=== PATIENT | female | born 1940 | race Caucasian/White ===

== ENCOUNTER 2018-06-26 13:16 | Emergency (ER) | payer MEDICARE ==
--- NOTE | 2018-06-26 14:33 | UC ---
Lower Extremity/Ankle HPI - HPI Summary HPI Summary: right foot pain for 2 days no recall of injury - History of Current Complaint Chief Complaint: UCLowerExtremity Stated Complaint: FOOT PAIN Time Seen by Provider: 06/26/18 14:26 Hx Obtained From: Patient ?: No Onset/Duration: Sudden Onset, Lasting Days - 2, Other - similar pain a few years ago--unknown dx treated with pain med and it went away in about 1 week Severity Initially: Moderate Severity Currently: Severe Pain Intensity: 10 Pain Scale Used: 0-10 Numeric Aggravating Factor(s): Standing, Ambulation Alleviating Factor(s): Nothing Able to Bear Weight: No - Allergies/Home Medications Allergies/Adverse Reactions: Allergies Allergy/AdvReac Type Severity Reaction Status Date / Time morphine Allergy Intermediate Rash Verified 06/26/18 13:56 pioglitazone [From Actos] Allergy Unknown Verified 06/26/18 13:56 Reaction Details PMH/Surg Hx/FS Hx/Imm Hx Previously Healthy: No Endocrine History: Diabetes, Dyslipidemia Cardiovascular History: Hypertension - Surgical History Surgical History: Yes Surgery Procedure, Year, and Place: LEFT HIP REPLACEMENT 2009. BILATERAL KNEE REPLACEMENTS 2003, 2004. 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 - Social History Occupation: Retired Lives: With Family Alcohol Use: None Substance Use Type: None Smoking Status (MU): Never Smoked Tobacco Review of Systems Constitutional: Negative Skin: Negative Eyes: Negative ENT: Negative Respiratory: Negative Cardiovascular: Negative Gastrointestinal: Negative Genitourinary: Negative Motor: Negative Neurovascular: Negative Musculoskeletal: Arthralgia - right great toe mtj pain Neurological: Negative Psychological: Negative Is Patient Immunocompromised?: No All Other Systems Reviewed And Are Negative: Yes Physical Exam Triage Information Reviewed: Yes Appearance: Well-Appearing, No Pain Distress, Well-Nourished Vital Signs: Initial Vital Signs Temp 97.3 F 06/26/18 13:56 Pulse 63 06/26/18 13:56 Resp 20 06/26/18 13:56 BP 124/66 06/26/18 13:56 Pulse Ox 100 06/26/18 13:56 Vital Signs Reviewed: Yes Eye Exam: Normal Eyes: Positive: Conjunctiva Clear ENT Exam: Normal ENT: Positive: Normal ENT inspection, Hearing grossly normal. Negative: Trismus , Muffled voice, Hoarse voice Neck exam: Normal Neck: Positive: Supple, Nontender Respiratory Exam: Normal Respiratory: Positive: Chest non-tender, No respiratory distress, No accessory muscle use Cardiovascular Exam: Normal Cardiovascular: Positive: RRR, Pulses Normal, Brisk Capillary Refill Musculoskeletal Exam: Other Musculoskeletal: Positive: No Edema, Strength Limited @ - mtp joint pain, ROM Limited @ Neurological Exam: Normal Neurological: Positive: Alert, Muscle Tone Normal Psychological Exam: Normal Psychological: Positive: Normal Response To Family, Age Appropriate Behavior, Consolable Skin Exam: Normal Diagnostics - Radiology No standard instances Radiology Interpretation Completed By: ED Physician, Radiologist Summary of Radiographic Findings: Patient Name: ADRYAN SHIELDS Medical Record#: [id number]. Ordering Physician: Susie Ladd NP Acct.#: [id number]. : 1940 Age: 77 Sex: F Location: [facility]. Exam Date: 06/26/181433 ADM Status: REG ER. Order Information: FOOT RIGHT 3+ VWS. Accession Number: [id number]. CPT: 23715. INDICATION: Right great toe pain. TECHNIQUE: 3 views of the right foot were obtained. FINDINGS: There appears to be diffuse soft tissue swelling in the foot. The bones are in. normal alignment. No fracture is seen. Joint spaces appear maintained. . IMPRESSION: NO EVIDENCE FOR FRACTURE. . <Electronically signed by Marin Morales MD in OV> 1525. Dictated By: Marin Morales MD. Dictated Date/Time: 06/26/181525. Transcribed Date/Time: 06/26/18 152. Copy to: CC:Enrique Arguello MD; Susie Ladd NP; Michelle Yoo MD. [facility]. [address] [place] [address]. ph ([phone]) ph ([phone]) ph ([phone]). This report is only to be considered final once signed by the Provider(s) as displayed in the "<Electronically Signed by >" field (s). Absence of a. signature indicates the report is in a draft status and still needs to be finalized. In the event this document was created by someone other than the. signing Provider, the individual initiating the document will be listed in the "Entered by:" or "Dictated by:" melissa. 1 of 1 Lower Extremity Course/Dx - Course Course Of Treatment: lab studies for evaluation of inflamation and gout, post op shoe and cane, NSAID and pain control---follow with Dr. Yoo this week - Differential Dx/Diagnosis Provider Diagnoses: gout right great toe Discharge - Sign-Out/Discharge Documenting (check all that apply): Patient Departure All imaging exams completed and their final reports reviewed: Yes - Discharge Plan Condition: Stable Disposition: HOME Prescriptions: Hydrocodone/Acetaminophen [Hydrocodone/Acetaminophen 5-325 mg] 0.5 - 1 tab PO Q6HR PRN #10 tab MDD 4 PRN Reason: pain Naproxen [Naproxen 375 mg tab] 375 mg PO BID PRN #30 tablet.dr VELASQUEZ Reason: Pain Patient Education Materials: Low Purine Diet (ED), Gout (ED) Referrals: Michelle Yoo MD [Primary Care Provider] - 3 Days - Billing Disposition and Condition Condition: STABLE Disposition: Home
--- NOTE | 2018-06-26 15:30 | RAD ---
INDICATION: Right great toe pain. TECHNIQUE: 3 views of the right foot were obtained. FINDINGS: There appears to be diffuse soft tissue swelling in the foot. The bones are in normal alignment. No fracture is seen. Joint spaces appear maintained. IMPRESSION: NO EVIDENCE FOR FRACTURE.
[2018-06-26 16:32] VITALS: BP 120/68
[2018-06-27 13:44] LABS: ABS Basophils 0.1 10^3/ul (0-0.2); ABS Eosinophils 0.1 10^3/ul (0-0.6); ABS Lymphocytes 1.8 10^3/ul (1.0-4.8); ABS Monocytes 0.7 10^3/ul (0-0.8); ABS Neutrophils 5.6 10^3/ul (1.5-7.7); ABS Nucleated RBC 0 10^3/ul; Eosinophil % 1.4 % (0-6); Hematocrit 43 % (35-47); Hemoglobin 14.6 g/dl (12.0-16.0); Lymphocyte % 21.7 % (25-47); Mean Corpuscular HGB Conc 34 g/dl (31-36); Mean Corpuscular Hemoglobin 31 pg (27-31); Mean Corpuscular Volume 91 fL (80-97); Mean Platelet Volume 8.1 um3 (7.4-10.4); Nucleated Red Blood Cells % 0.4; Platelet Count 310 10^3/ul (150-450); Red Blood Count 4.69 10^6/ul (4.00-5.40); Red Cell Distribution Width 13 % (10.5-15); White Blood Count 8.3 10^3/ul (3.5-10.8)
== END 2018-06-26 16:15 | disposition home or self-care (01) ==
LOC: UCEAST 13:16
DX: M10.9 Gout, unspecified (principal); E11.9 Type 2 diabetes mellitus without complications; I10 Essential (primary) hypertension; Z88.8 Allergy status to other drugs, medicaments and biological substances; Z88.5 Allergy status to narcotic agent
CPT/HCPCS: 36415; 84550; 85025; 86140; 99213; G0463

== ENCOUNTER 2021-10-10 11:25 | Inpatient (IN) ==
[2021-10-10 13:12] LABS: Venous Bicarbonate HCO3 28.8 mmol/L (24-28)
[2021-10-10 13:13] LABS: ABS Monocytes 0.6 10^3/ul (0-0.8); ABS Neutrophils 6.4 10^3/ul (1.5-7.7); Eosinophil % 0.2 %; Hematocrit 41 % (35-47); Hemoglobin 14.2 g/dL (12.0-16.0); Lymphocyte % 12.3 %; Mean Corpuscular HGB Conc 35 g/dL (31-36); Mean Corpuscular Hemoglobin 30 pg (27-31); Mean Corpuscular Volume 88 fL (80-97); Mean Platelet Volume 7.6 fL (7.4-10.4); Platelet Count 281 10^3/uL (150-450); Red Blood Count 4.69 10^6 /uL (3.70-4.87); Red Cell Distribution Width 13 % (10-15)
[2021-10-10 13:33] LABS: Troponin I 0.01 ng/mL (<0.03)
[2021-10-10 13:49] LABS: Albumin/Globulin Ratio 1.3 (1-3); Calcium 9.2 mg/dL (8.6-10.3); Globulin 3.2 g/dL (2-4); Potassium 3.7 mmol/L (3.5-5.0); Total Bilirubin 0.7 mg/dL (0.2-1.0); Total Protein 7.2 g/dL (6.4-8.9); eGFR CKD-EPI 45.5 (>60)
[2021-10-10] MEDS ORDERED: NS 0.9% 1000 ml BAG 1,000 ML IV ONE (13:51)
[2021-10-10] MEDS ORDERED: cefTRIAXone 1 gm/50 mL NS BAG 1 GM/50 ML BAG IV ONE (13:52)
[2021-10-10 16:44] LABS: Urine Appearance Clear; Urine Bilirubin Negative (Negative); Urine Blood 2+ (Negative); Urine Color Yellow; Urine Glucose 3+(>=500 mg/dL) (Negative); Urine Ketones 1+ (Negative); Urine Nitrite Negative (Negative); Urine Protein 1+(30 mg/dL) (Negative); Urine Specific Gravity 1.026 (1.002-1.030); Urine Urobilinogen Negative (Negative)
[2021-10-10 17:10] LABS: Urine Bacteria 1+ (Absent); Urine Red Blood Cell 2+(6-10/hpf) (Absent); Urine Squamous Epithelial Cell Present (Absent); Urine White Blood Cell Trace(0-5/hpf) (Absent)
[2021-10-10] MEDS ORDERED: NS 0.9% 1000 ml BAG 1,000 ML IV SCH (17:15)
[2021-10-10] MEDS ORDERED: Remdesivir 100 mg Vial 200 MG in NS 0.9% 250 ml 210 ML IV ONE (17:42)
[2021-10-10 18:26] LABS: C Reactive Protein 115.85 mg/L (<8.01)
[2021-10-10] MEDS: Haloperidol 5 mg/ml SDV IV/IM 5 MG/ML AMP IM ONE (20:24)
[2021-10-10] MEDS: Insulin GLARGINE 100 un/ml 10 ml VIAL SUBCUT SCH (22:03)
[2021-10-10] MEDS: Enoxaparin 40 MG/0.4 ML SYR SUBCUT SCH (22:03)
[2021-10-10] MEDS: Magnesium Hydroxide LIQ 30 ML UDC PO ONE ×2 (22:03→22:13)
[2021-10-10] MEDS: Senna TAB 8.6 mg TAB PO ONE ×2 (22:03→22:13)
[2021-10-11] MEDS: Haloperidol 5 mg/ml SDV IV/IM 5 MG/ML AMP IM ONE (03:56)
[2021-10-11 06:42] LABS: Hematocrit 35 % (35-47); Hemoglobin 12.2 g/dL (12.0-16.0); Mean Corpuscular HGB Conc 35 g/dL (31-36); Mean Corpuscular Hemoglobin 31 pg (27-31); Mean Corpuscular Volume 86 fL (80-97); Mean Platelet Volume 7.8 fL (7.4-10.4); Platelet Count 230 10^3/uL (150-450); Red Cell Distribution Width 13 % (10-15); White Blood Count 7.4 10^3/uL (3.5-10.8)
[2021-10-11 06:49] LABS: INR 1.09 (0.86-1.15)
[2021-10-11 06:53] LABS: Albumin 3.1 g/dL (3.2-5.2); Albumin/Globulin Ratio 1.2 (1-3); Calcium 7.8 mg/dL (8.6-10.3); Globulin 2.5 g/dL (2-4); Magnesium 1.3 mg/dL (1.9-2.7); Phosphorus 2.2 mg/dL (2.5-5.0); Potassium 2.8 mmol/L (3.5-5.0); Total Bilirubin 0.5 mg/dL (0.2-1.0); Total Protein 5.6 g/dL (6.4-8.9); eGFR CKD-EPI 60.2 (>60)
[2021-10-11] MEDS ORDERED: Potassium Chlor 20 meq TAB.ER PO ONE ×2 (07:37→12:00)
[2021-10-11] MEDS ORDERED: Magnesium Sulfate IV 3 GM in NS 0.9% 100 ml BAG 100 ML IVPB ONE (07:38)
[2021-10-11] MEDS ORDERED: KCL 20 MEQ/100 ML IVPREMIX 20 MEQ/100 ML BAG IV SCH (08:00)
[2021-10-11] MEDS ORDERED: Magnesium Sulfate 2 GM IV (Premix) IVPB ONE (08:00)
[2021-10-11] MEDS ORDERED: Potassium Phosphate IV 15 MMOLE in NS 0.9% 250 ml 250 ML IVPB ONE (08:30)
[2021-10-11] MEDS ORDERED: Magnesium Sulfate 1 GM IV 1 GM/100 ML BAG IV ONE (09:00)
[2021-10-11] MEDS ORDERED: cefTRIAXone 1 gm/50 mL NS BAG 1 GM/50 ML BAG IVPB SCH (14:00)
[2021-10-11] MEDS ORDERED: Senna TAB 8.6 mg TAB PO PRN (16:43)
[2021-10-11] MEDS ORDERED: Magnesium Hydroxide LIQ 30 ML UDC PO PRN (16:43)
[2021-10-11] MEDS: Enoxaparin 40 MG/0.4 ML SYR SUBCUT SCH (17:41)
[2021-10-11] MEDS: Insulin GLARGINE 100 un/ml 10 ml VIAL SUBCUT SCH (21:54)
[2021-10-11] MEDS: Remdesivir 100 mg Vial 100 MG in NS 0.9% 250 ml 230 ML IV SCH (22:02)
[2021-10-12 08:11] LABS: INR 1.27 (0.86-1.15)
[2021-10-12 08:34] LABS: Albumin 3.1 g/dL (3.2-5.2); Albumin/Globulin Ratio 1.2 (1-3); Calcium 7.8 mg/dL (8.6-10.3); Globulin 2.5 g/dL (2-4); Magnesium 1.7 mg/dL (1.9-2.7); Phosphorus 2.6 mg/dL (2.5-5.0); Potassium 3.6 mmol/L (3.5-5.0); Total Bilirubin 0.5 mg/dL (0.2-1.0); Total Protein 5.6 g/dL (6.4-8.9)
[2021-10-12] MEDS ORDERED: Magnesium Sulfate IV 3 GM in NS 0.9% 100 ml BAG 100 ML IVPB ONE (08:52)
[2021-10-12] MEDS ORDERED: Magnesium Sulfate 2 GM IV (Premix) IVPB ONE (10:00)
[2021-10-12] MEDS ORDERED: Magnesium Sulfate 1 GM IV 1 GM/100 ML BAG IV ONE (11:00)
[2021-10-12] MEDS ORDERED: Magnesium Hydroxide LIQ 30 ML UDC PO ONE (14:25)
[2021-10-12] MEDS: Enoxaparin 40 MG/0.4 ML SYR SUBCUT SCH (16:45)
[2021-10-12] MEDS: Remdesivir 100 mg Vial 100 MG in NS 0.9% 250 ml 230 ML IV SCH (21:21)
[2021-10-12] MEDS: Insulin GLARGINE 100 un/ml 10 ml VIAL SUBCUT SCH (21:41)
[2021-10-13] MEDS ORDERED: Magnesium Sulfate 2 gm BAG 2 GM/50 ML BAG IVPB ONE (11:34)
[2021-10-13] MEDS: Enoxaparin 40 MG/0.4 ML SYR SUBCUT SCH (17:40)
[2021-10-13] MEDS: Insulin GLARGINE 100 un/ml 10 ml VIAL SUBCUT SCH (21:30)
[2021-10-13] MEDS: Remdesivir 100 mg Vial 100 MG in NS 0.9% 250 ml 230 ML IV SCH (21:34)
[2021-10-14 06:55] LABS: Magnesium 1.9 mg/dL (1.9-2.7); Potassium 3.3 mmol/L (3.5-5.0); eGFR CKD-EPI 64.2 (>60)
[2021-10-14] MEDS ORDERED: Potassium Chloride LIQUID 20 MEQ/15 ML LIQUID PO ONE (07:18)
[2021-10-14] MEDS ORDERED: Potassium Chlor 20 meq TAB.ER PO ONE (09:09)
[2021-10-14] MEDS ORDERED: guaiFENesin 100 mg/5 ml LIQ unit dose cup PO PRN (09:46)
[2021-10-14 10:36] VITALS: BP 134/78
== END 2021-10-14 11:00 | disposition swing bed (61) | DRG 178 ==
LOC: EDHOLD 11:25 → ED 11:25 → MED 17:24 → SUATTDRO 10-11 08:42
PROVIDERS: ADMIT Internal Medicine; ATTEND Internal Medicine

== ENCOUNTER 2021-10-14 12:49 | Inpatient (IN) ==
[2021-10-14] MEDS ORDERED: Enoxaparin 40 MG/0.4 ML SYR SUBCUT SCH ×2 (15:00)
[2021-10-14] MEDS: Enoxaparin 40 MG/0.4 ML SYR SUBCUT SCH (16:59)
[2021-10-14] MEDS: guaiFENesin 100 mg/5 ml LIQ unit dose cup PO PRN (17:11)
[2021-10-14] MEDS ORDERED: Insulin GLARGINE 100 un/ml 10 ml VIAL SUBCUT SCH (21:00)
[2021-10-14] MEDS: Insulin GLARGINE 100 un/ml 10 ml VIAL SUBCUT SCH (21:28)
[2021-10-15] MEDS: guaiFENesin 100 mg/5 ml LIQ unit dose cup PO PRN (16:51)
[2021-10-15] MEDS: Enoxaparin 40 MG/0.4 ML SYR SUBCUT SCH (16:51)
[2021-10-15] MEDS: Insulin GLARGINE 100 un/ml 10 ml VIAL SUBCUT SCH (20:31)
[2021-10-16] MEDS: Enoxaparin 40 MG/0.4 ML SYR SUBCUT SCH (17:11)
[2021-10-16] MEDS: guaiFENesin 100 mg/5 ml LIQ unit dose cup PO PRN (17:11)
[2021-10-16] MEDS: Insulin GLARGINE 100 un/ml 10 ml VIAL SUBCUT SCH (20:06)
[2021-10-17] MEDS: Enoxaparin 40 MG/0.4 ML SYR SUBCUT SCH (17:13)
[2021-10-17] MEDS: guaiFENesin 100 mg/5 ml LIQ unit dose cup PO PRN (21:21)
[2021-10-17] MEDS: Insulin GLARGINE 100 un/ml 10 ml VIAL SUBCUT SCH (21:26)
[2021-10-17 22:11] LABS: Glucose Confirmatory 424 mg/dL (70-100)
[2021-10-18] MEDS ORDERED: Dextrose 50% Syringe 50 ml 25 GM/50 ML SYRINGE IV PUSH PRN (07:08)
[2021-10-18] MEDS: guaiFENesin 100 mg/5 ml LIQ unit dose cup PO PRN ×2 (09:22→17:29)
[2021-10-18] MEDS: Enoxaparin 40 MG/0.4 ML SYR SUBCUT SCH (17:14)
[2021-10-18] MEDS: Insulin GLARGINE 100 un/ml 10 ml VIAL SUBCUT SCH (21:47)
[2021-10-19 07:40] LABS: ABS Eosinophils 0.1 10^3/ul (0-0.6); ABS Lymphocytes 1.6 10^3/ul (1.0-4.8); ABS Neutrophils 6.5 10^3/ul (1.5-7.7); Eosinophil % 1.1 %; Hematocrit 37 % (35-47); Hemoglobin 12.8 g/dL (12.0-16.0); Lymphocyte % 17.3 %; Mean Corpuscular HGB Conc 35 g/dL (31-36); Mean Corpuscular Hemoglobin 31 pg (27-31); Mean Corpuscular Volume 89 fL (80-97); Platelet Count 480 10^3/uL (150-450); Red Blood Count 4.18 10^6 /uL (3.70-4.87); Red Cell Distribution Width 13 % (10-15); White Blood Count 9.2 10^3/uL (3.5-10.8)
[2021-10-19] MEDS: guaiFENesin 100 mg/5 ml LIQ unit dose cup PO PRN (07:52)
[2021-10-19 08:00] LABS: Albumin 3.3 g/dL (3.2-5.2); Albumin/Globulin Ratio 1.1 (1-3); Calcium 8.8 mg/dL (8.6-10.3); Globulin 3.1 g/dL (2-4); Magnesium 1.6 mg/dL (1.9-2.7); Potassium 3.4 mmol/L (3.5-5.0); Total Bilirubin 0.6 mg/dL (0.2-1.0); Total Protein 6.4 g/dL (6.4-8.9); eGFR CKD-EPI 46.4 (>60)
[2021-10-19] MEDS: Enoxaparin 40 MG/0.4 ML SYR SUBCUT SCH (17:27)
[2021-10-19] MEDS: Insulin GLARGINE 100 un/ml 10 ml VIAL SUBCUT SCH (21:06)
[2021-10-20 07:18] LABS: Calcium 8.8 mg/dL (8.6-10.3); Potassium 3.4 mmol/L (3.5-5.0); eGFR CKD-EPI 51.6 (>60)
[2021-10-20] MEDS ORDERED: Potassium Chlor 20 meq TAB.ER PO ONE (07:44)
[2021-10-20 07:52] LABS: Rapid COVID-19 Molecular Detected (Undetected)
[2021-10-20 08:22] LABS: Magnesium 1.6 mg/dL (1.9-2.7)
[2021-10-20] MEDS ORDERED: Magnesium Sulf 4 GM/100 ML IV 4,000 MG/100 ML BAG IVPB ONE (10:00)
[2021-10-20] MEDS: Enoxaparin 40 MG/0.4 ML SYR SUBCUT SCH (17:31)
[2021-10-20] MEDS: Insulin GLARGINE 100 un/ml 10 ml VIAL SUBCUT SCH (21:28)
[2021-10-21 06:27] LABS: ABS Eosinophils 0.2 10^3/ul (0-0.6); ABS Lymphocytes 1.6 10^3/ul (1.0-4.8); ABS Monocytes 0.7 10^3/ul (0-0.8); ABS Neutrophils 6.5 10^3/ul (1.5-7.7); Eosinophil % 1.9 %; Hematocrit 35 % (35-47); Hemoglobin 12.3 g/dL (12.0-16.0); Lymphocyte % 17.9 %; Mean Corpuscular HGB Conc 35 g/dL (31-36); Mean Corpuscular Hemoglobin 31 pg (27-31); Mean Corpuscular Volume 89 fL (80-97); Mean Platelet Volume 6.9 fL (7.4-10.4); Platelet Count 504 10^3/uL (150-450); Red Blood Count 3.98 10^6 /uL (3.70-4.87); Red Cell Distribution Width 13 % (10-15); White Blood Count 9.1 10^3/uL (3.5-10.8)
[2021-10-21 06:46] LABS: Albumin 3.3 g/dL (3.2-5.2); Calcium 8.5 mg/dL (8.6-10.3); Globulin 3.2 g/dL (2-4); Potassium 3.6 mmol/L (3.5-5.0); Total Bilirubin 0.6 mg/dL (0.2-1.0); Total Protein 6.5 g/dL (6.4-8.9); eGFR CKD-EPI 48.9 (>60)
[2021-10-21] MEDS: Magnesium Hydroxide LIQ 30 ML UDC PO PRN (09:59)
[2021-10-21] MEDS: Senna TAB 8.6 mg TAB PO PRN (09:59)
[2021-10-21] MEDS ORDERED: COVID-19 VACCINE, MRNA(MODERNA)/PF 100 MCG/0.5 ML IM ONE (16:13)
[2021-10-21] MEDS: Enoxaparin 40 MG/0.4 ML SYR SUBCUT SCH (17:34)
[2021-10-21] MEDS: guaiFENesin 100 mg/5 ml LIQ unit dose cup PO PRN (18:28)
[2021-10-21 20:18] LABS: Vitamin D Total 25(OH) 9.6 ng/mL (20-50)
[2021-10-21] MEDS: Insulin GLARGINE 100 un/ml 10 ml VIAL SUBCUT SCH (22:49)
[2021-10-22] MEDS: guaiFENesin 100 mg/5 ml LIQ unit dose cup PO PRN (11:53)
[2021-10-22] MEDS: Enoxaparin 40 MG/0.4 ML SYR SUBCUT SCH (15:23)
[2021-10-22 16:16] LABS: ABS Lymphocytes 0.5 10^3/ul (1.0-4.8); ABS Monocytes 0.7 10^3/ul (0-0.8); ABS Neutrophils 8.2 10^3/ul (1.5-7.7); Eosinophil % 0.1 %; Hematocrit 38 % (35-47); Hemoglobin 13.1 g/dL (12.0-16.0); Lymphocyte % 5.8 %; Mean Corpuscular HGB Conc 34 g/dL (31-36); Mean Corpuscular Hemoglobin 30 pg (27-31); Mean Corpuscular Volume 88 fL (80-97); Mean Platelet Volume 7.1 fL (7.4-10.4); Platelet Count 541 10^3/uL (150-450); Red Blood Count 4.35 10^6 /uL (3.70-4.87); Red Cell Distribution Width 13 % (10-15); White Blood Count 9.4 10^3/uL (3.5-10.8)
[2021-10-22] MEDS: Insulin GLARGINE 100 un/ml 10 ml VIAL SUBCUT SCH (22:54)
[2021-10-22 23:43] LABS: Calcium 8.7 mg/dL (8.6-10.3); Potassium 3.8 mmol/L (3.5-5.0)
[2021-10-22 23:49] LABS: eGFR CKD-EPI 42.5 (>60)
[2021-10-23 00:31] LABS: Urine Appearance Clear; Urine Bilirubin Negative (Negative); Urine Blood Negative (Negative); Urine Color Yellow; Urine Glucose 2+(150 mg/dL) (Negative); Urine Ketones Negative (Negative); Urine Nitrite Negative (Negative); Urine Protein Negative (Negative); Urine Specific Gravity 1.013 (1.002-1.030); Urine Urobilinogen Negative (Negative)
[2021-10-23] MEDS ORDERED: NS 0.9% 1000 ml BAG 1,000 ML IV ONE (01:10)
[2021-10-23 07:49] LABS: Calcium 8.3 mg/dL (8.6-10.3); Potassium 3.7 mmol/L (3.5-5.0)
[2021-10-23] MEDS: Magnesium Hydroxide LIQ 30 ML UDC PO PRN (08:45)
[2021-10-23] MEDS: Enoxaparin 40 MG/0.4 ML SYR SUBCUT SCH (17:08)
[2021-10-23] MEDS: Insulin GLARGINE 100 un/ml 10 ml VIAL SUBCUT SCH (20:59)
[2021-10-23] MEDS ORDERED: Insulin GLARGINE 100 un/ml 10 ml VIAL SUBCUT SCH (21:00)
[2021-10-24] MEDS: guaiFENesin 100 mg/5 ml LIQ unit dose cup PO PRN (12:00)
[2021-10-24] MEDS: Enoxaparin 40 MG/0.4 ML SYR SUBCUT SCH (17:19)
[2021-10-24] MEDS: Insulin GLARGINE 100 un/ml 10 ml VIAL SUBCUT SCH (22:32)
[2021-10-25] MEDS: guaiFENesin 100 mg/5 ml LIQ unit dose cup PO PRN (14:09)
[2021-10-25] MEDS: Enoxaparin 40 MG/0.4 ML SYR SUBCUT SCH (17:25)
[2021-10-25] MEDS: Insulin GLARGINE 100 un/ml 10 ml VIAL SUBCUT SCH (22:45)
[2021-10-26] MEDS: guaiFENesin 100 mg/5 ml LIQ unit dose cup PO PRN (12:27)
[2021-10-26] MEDS: Enoxaparin 40 MG/0.4 ML SYR SUBCUT SCH (17:25)
[2021-10-26] MEDS: Insulin GLARGINE 100 un/ml 10 ml VIAL SUBCUT SCH (21:04)
[2021-10-27] MEDS: Enoxaparin 40 MG/0.4 ML SYR SUBCUT SCH (17:37)
[2021-10-27 20:14] LABS: Rapid COVID-19 Molecular Detected (Undetected)
[2021-10-27] MEDS: Insulin GLARGINE 100 un/ml 10 ml VIAL SUBCUT SCH (20:43)
[2021-10-28] MEDS: guaiFENesin 100 mg/5 ml LIQ unit dose cup PO PRN (13:38)
[2021-10-28] MEDS: Enoxaparin 40 MG/0.4 ML SYR SUBCUT SCH (17:51)
[2021-10-28] MEDS: Insulin GLARGINE 100 un/ml 10 ml VIAL SUBCUT SCH ×2 (22:10→22:22)
[2021-10-29] MEDS: guaiFENesin 100 mg/5 ml LIQ unit dose cup PO PRN (12:23)
[2021-10-29] MEDS: Enoxaparin 40 MG/0.4 ML SYR SUBCUT SCH (18:29)
[2021-10-29] MEDS: Insulin GLARGINE 100 un/ml 10 ml VIAL SUBCUT SCH (20:38)
[2021-10-30] MEDS: guaiFENesin 100 mg/5 ml LIQ unit dose cup PO PRN (11:49)
[2021-10-30] MEDS: Enoxaparin 40 MG/0.4 ML SYR SUBCUT SCH (17:24)
[2021-10-30] MEDS: Insulin GLARGINE 100 un/ml 10 ml VIAL SUBCUT SCH (21:37)
[2021-10-31] MEDS: guaiFENesin 100 mg/5 ml LIQ unit dose cup PO PRN (08:24)
[2021-10-31] MEDS: Enoxaparin 40 MG/0.4 ML SYR SUBCUT SCH (17:15)
[2021-10-31] MEDS: Insulin GLARGINE 100 un/ml 10 ml VIAL SUBCUT SCH (22:27)
[2021-11-01] MEDS: Senna TAB 8.6 mg TAB PO PRN (10:21)
[2021-11-01] MEDS: Enoxaparin 40 MG/0.4 ML SYR SUBCUT SCH (17:00)
[2021-11-01] MEDS: Insulin GLARGINE 100 un/ml 10 ml VIAL SUBCUT SCH (20:48)
[2021-11-02] MEDS: Enoxaparin 40 MG/0.4 ML SYR SUBCUT SCH (16:50)
[2021-11-02] MEDS: Polyethylene Glycol 3350 17 GM PACKET PO SCH (20:52)
[2021-11-02] MEDS: Insulin GLARGINE 100 un/ml 10 ml VIAL SUBCUT SCH (20:52)
[2021-11-03] MEDS: Polyethylene Glycol 3350 17 GM PACKET PO SCH ×2 (08:03→20:50)
[2021-11-03] MEDS: guaiFENesin 100 mg/5 ml LIQ unit dose cup PO PRN (14:09)
[2021-11-03] MEDS: Enoxaparin 40 MG/0.4 ML SYR SUBCUT SCH (18:06)
[2021-11-03] MEDS ORDERED: Insulin GLARGINE 100 un/ml 10 ml VIAL SUBCUT SCH (21:00)
[2021-11-04 07:43] VITALS: BP 108/58
[2021-11-04] MEDS: Polyethylene Glycol 3350 17 GM PACKET PO SCH (08:52)
== END 2021-11-04 16:15 | DRG 179 ==
LOC: MED 14:23 → SUATTDRO 14:23
PROVIDERS: ADMIT Internal Medicine; ATTEND Internal Medicine